=== PATIENT | female | born 1990 | race African-American/Black ===

== ENCOUNTER 2023-11-01 10:50 | Emergency (ER) | payer OTHER ==
[~2023-11-01] VITALS: Ht 160 cm; Wt 68.0 kg
[2023-11-01 10:57] VITALS: BP 126/83; TEMP 98; O2SAT 100
[2023-11-01 10:59] VITALS: PULSE 82; RESP 16
== END 2023-11-01 16:43 | disposition left against medical advice (07) ==
LOC: ER 10:50
DX: M54.6 Pain in thoracic spine (principal)
CPT/HCPCS: 99281; Z7610 ×2